=== PATIENT | female | born 1955 | race Caucasian/White ===

== ENCOUNTER 2016-12-15 03:41 | Emergency (ER) | payer OTHER ==
[2016-12-15 03:51] VITALS: BP 155/84; PULSE 73; TEMP 98.4; BMI 27.4
[2016-12-15 03:56] LABS: BASOPHIL 0.6 % (0-2.0); EOSINOPHIL 2.9 % (0-4.5); MCH 29.7 pg (25.7-33.7); MCHC 32.9 g/dl (32.0-36.0); MEAN CELL VOLUME 90.3 fl (80-96); NEUTROPHILS 46.4 % (42.8-82.8); PLATELET COUNT 263 K/MM3 (134-434); RDW 14.7 % (11.6-15.6); WHITE BLOOD COUNT 9.7 K/mm3 (4.0-10.0)
[2016-12-15 04:02] LABS: URINE APPEARANCE CLEAR; URINE BILIRUBIN NEGATIVE (NEGATIVE); URINE BLOOD NEGATIVE (NEGATIVE); URINE COLOR COLORLESS; URINE GLUCOSE (UA) NEGATIVE (NEGATIVE); URINE KETONE NEGATIVE (NEGATIVE); URINE LEUK ESTERASE NEGATIVE (NEGATIVE); URINE NITRITE NEGATIVE (NEGATIVE); URINE PROTEIN NEGATIVE (NEGATIVE); URINE UROBILINOGEN NEGATIVE E.U./dl (0.2-1.0)
[2016-12-15] MEDS ORDERED: PANTOPRAZOLE SODIUM 40 MG in SODIUM CHLORIDE 100 ML IVPB ONE (04:06)
--- NOTE | 2016-12-15 04:06 | PDOC ---
History of Present Illness - General History Source: Patient Exam Limitations: No Limitations - History of Present Illness Initial Comments: 12/15/16 04:09 The patient is a 61 year old female with significant past medical history of hypertension who presents to the ED for epigastric discomfort prior to arrival. Patient reports she was in her usual state of health and ate prior to going to bed last night when she woke up with epigastric discomfort. She describes the pain as a burning sensation that is nonradiating with associated nausea, but no vomiting or diarrhea. States her symptoms are progressively getting better. The patient denies fever, chills, cough, SOB, chest pain, and palpitations. Allergies: NKDA Social History: No alcohol, tobacco, or drug use reported. Past Surgical History: None reported PCP: None reported <Laura Moser - Last Filed: 12/15/16 04:10> - General History Source: Patient <Kvng Croft - Last Filed: 12/15/16 04:57> - General Chief Complaint: Pain Stated Complaint: ABDOMINAL PAIN Time Seen by Provider: 12/15/16 04:06 Past History <Laura Moser - Last Filed: 12/15/16 04:10> - Past Medical History HTN: Yes Hypercholesterolemia: Yes - Immunization History Immunization Up to Date: Yes - Psycho/Social/Smoking Cessation Hx Anxiety: No Suicidal Ideation: No Smoking Status: No Smoking History: Never smoked Have you smoked in the past 12 months: No Number of Cigarettes Smoked Daily: 0 Hx Alcohol Use: No Drug/Substance Use Hx: No <Kvng Croft - Last Filed: 12/15/16 04:57> - Past Medical History Allergies/Adverse Reactions: Allergies Allergy/AdvReac Type Severity Reaction Status Date / Time No Known Allergies Allergy Verified 12/15/16 03:48 Home Medications: Ambulatory Orders Aspirin [ASA -] 81 mg PO DAILY #0 tab.chew 02/26/13 Amlodipine Besylate [Norvasc -] 5 mg PO DAILY 12/15/16 Atorvastatin Ca [Lipitor] 40 mg PO HS 12/15/16 Levothyroxine [Synthroid -] 50 mcg PO DAILY 12/15/16 Pantoprazole Sodium [Protonix] 40 mg PO DAILY #30 tablet. 12/15/16 Review of Systems - Review of Systems Able to Perform ROS?: Yes Comments:: 12/15/16 04:09 CONSTITUTIONAL: Absent: fever, no chills, no fatigue EYES: Absent: visual changes ENT: Absent: ear pain, no sore throat CARDIOVASCULAR: Absent: chest pain, no palpitations RESPIRATORY: Absent: cough, no SOB GI: +epigastric discomfort, nausea Absent: no vomiting, no constipation, no diarrhea GENITOURINARY: Absent: dysuria, no frequency, no hematuria MUSCULOSKELETAL: Absent: back pain, no arthralgia, no myalgia SKIN: Absent: rash NEURO: Absent: headache <Laura Moser - Last Filed: 12/15/16 04:10> *Physical Exam - Vital Signs Last Vital Signs Temp Pulse Resp BP Pulse Ox 98.4 F 73 20 155/84 99 12/15/16 03:49 12/15/16 03:49 12/15/16 03:49 12/15/16 03:49 12/15/16 03:49 - Physical Exam Comments: 12/15/16 04:10 GENERAL: Well-appearing, well-nourished. No apparent distress. HEENT: Normocephalic, atraumatic. PERRL, EOM intact. CARDIOVASCULAR: Normal S1, S2. Regular rate and rhythm. PULMONARY: Clear to auscultation bilaterally. ABDOMEN: Soft, non-distended, non-tender. EXTREMITIES: Normal ROM in all four extremities. No gross deformities. SKIN: Warm, dry. No rash NEUROLOGICAL: No focal neurological deficits. <Laura Moser - Last Filed: 12/15/16 04:10> - Vital Signs Last Vital Signs Temp Pulse Resp BP Pulse Ox 98.4 F 73 20 155/84 99 12/15/16 03:49 12/15/16 03:49 12/15/16 03:49 12/15/16 03:49 12/15/16 03:49 <Kvng Croft - Last Filed: 12/15/16 04:57> Heart Score/ECG Review - ECG Impressions Comment:: 12/15/16 04:10 NSR with sinus arrhythmia @63bpm Nonspecific T wave abnormality Abnormal ECG <Laura Moser - Last Filed: 12/15/16 04:10> ED Treatment Course - LABORATORY CBC & Chemistry Diagram: 12/15/16 03:45 12/15/16 03:45 - ADDITIONAL ORDERS Additional order review: Laboratory Results 12/15/16 03:51 Urine Color Colorless Urine Appearance Clear Urine pH 7.0 Urine Protein Negative Urine Glucose (UA) Negative Urine Ketones Negative Urine Blood Negative Urine Nitrite Negative Urine Bilirubin Negative Urine Urobilinogen Negative Ur Leukocyte Esterase Negative 12/15/16 03:45 RBC 4.08 MCV 90.3 MCHC 32.9 RDW 14.7 MPV 8.0 Neutrophils % 46.4 Lymphocytes % 42.0 H Monocytes % 8.1 Eosinophils % 2.9 Basophils % 0.6 <Laura Moser - Last Filed: 12/15/16 04:10> - LABORATORY CBC & Chemistry Diagram: 12/15/16 03:45 12/15/16 03:45 - ADDITIONAL ORDERS Additional order review: Laboratory Results 12/15/16 03:51 Urine Color Colorless Urine Appearance Clear Urine pH 7.0 Urine Protein Negative Urine Glucose (UA) Negative Urine Ketones Negative Urine Blood Negative Urine Nitrite Negative Urine Bilirubin Negative Urine Urobilinogen Negative Ur Leukocyte Esterase Negative 12/15/16 03:45 RBC 4.08 MCV 90.3 MCHC 32.9 RDW 14.7 MPV 8.0 Neutrophils % 46.4 Lymphocytes % 42.0 H Monocytes % 8.1 Eosinophils % 2.9 Basophils % 0.6 <Kvng Croft - Last Filed: 12/15/16 04:57> Medical Decision Making - Medical Decision Making 12/15/16 04:56 Dr. Croft: The scribe's documentation has been prepared under my direction and personally reviewed by me in its entirery. I confirm that the note above accurately reflects all work, treatment, procedures, and medical decision making performed by me. <Kvng Croft - Last Filed: 12/15/16 04:57> *DC/Admit/Observation/Transfer - Attestations Scribe Attestion: 12/15/16 04:10 Documentation prepared by Laura Moser, acting as medical front desk coordinator for Kvng Croft MD/DO. <Laura Moser - Last Filed: 12/15/16 04:10> - Discharge Dispostion Admit: No <Kvng Croft - Last Filed: 12/15/16 04:57> Diagnosis at time of Disposition: Abdominal pain Qualifiers: Abdominal location: epigastric Qualified Code(s): R10.13 - Epigastric pain GERD (gastroesophageal reflux disease) Qualifiers: Esophagitis presence: esophagitis presence not specified Qualified Code(s): K21.9 - Gastro-esophageal reflux disease without esophagitis - Discharge Dispostion Disposition: HOME Condition at time of disposition: Stable - Referrals Referrals: Deja Chavez MD [Staff Physician] - - Patient Instructions Printed Discharge Instructions: DI for Abdominal Pain-Adult, GERD Diet, DI for Gastroesophageal Reflux Disease (GERD) Print Language: VINCENTIAN
[2016-12-15] MEDS ORDERED: PANTOPRAZOLE SODIUM 40 MG VIAL ONE (04:08)
[2016-12-15 04:19] LABS: ALBUMIN 3.6 g/dl (3.4-5.0); AMYLASE 62 U/L (25-115); ANION GAP 7 (8-16); BILIRUBIN,TOTAL 0.2 mg/dL (0.2-1.0); CALCIUM 8.8 mg/dL (8.5-10.1); CO2 28 mmol/L (21-32); COCKROFT - GAULT 114.2315; CREATININE 0.6 mg/dL (0.55-1.02); GLUCOSE,RANDOM 120 mg/dL (74-106); SGOT/AST 30 U/L (15-37); SGPT/ALT 50 U/L (12-78); TOT PROT 7.8 g/dl (6.4-8.2)
[2016-12-15 04:22] LABS: ALK PHOS 124 U/L (45-117); TROPONIN I < 0.02 ng/ml (0.00-0.05)
--- NOTE | 2016-12-15 13:07 | EKG ---
Test Reason : Blood Pressure : / mmHG Vent. Rate : 063 BPM Atrial Rate : 063 BPM P-R Int : 158 ms QRS Dur : 084 ms QT Int : 416 ms P-R-T Axes : 065 024 051 degrees QTc Int : 425 ms NORMAL SINUS RHYTHM WITH SINUS ARRHYTHMIA NONSPECIFIC T WAVE ABNORMALITY ABNORMAL ECG WHEN COMPARED WITH ECG OF 23-FEB-2013 09:55, NO SIGNIFICANT CHANGE WAS FOUND Confirmed by MEGGAN LONG MD ([id number]) on 12/15/2016 1:07:23 PM Referred By: Confirmed By:MEGGAN LONG MD
== END 2016-12-15 05:03 | disposition home or self-care (01) ==
LOC: JER 03:41
PROC: 3E033GC Introduction of Other Therapeutic Substance into Peripheral Vein, Percutaneous Approach (ICD-10-PCS; principal; 2016-12-15)
DX: K21.9 Gastro-esophageal reflux disease without esophagitis (principal); R10.13 Epigastric pain; I10 Essential (primary) hypertension
CPT/HCPCS: 36415; 80053; 81003; 82150; 82550; 82553; 83690; 84484; 85025; 93005; 93010; 99283-25

== ENCOUNTER 2017-03-01 17:03 | Emergency (ER) | payer OTHER ==
[2017-03-01 17:12] VITALS: BP 135/76; PULSE 67; TEMP 98.3; BMI 28.3
--- NOTE | 2017-03-01 17:57 | PDOC ---
History of Present Illness - General Chief Complaint: Laceration Stated Complaint: INJURY TO RIGHT FOOT Time Seen by Provider: 03/01/17 17:37 History Source: Patient Exam Limitations: No Limitations, Language Barrier - History of Present Illness Initial Comments: 03/01/17 17:52 daughter translating; CC mom dropped kitchen knife onto foot today Timing/Duration: reports: just prior to arrival Severity: Yes: mild Location: reports: extremities Past History - Past Medical History Allergies/Adverse Reactions: Allergies Allergy/AdvReac Type Severity Reaction Status Date / Time No Known Allergies Allergy Verified 03/01/17 17:09 Home Medications: Ambulatory Orders Aspirin [ASA -] 81 mg PO DAILY #0 tab.chew 02/26/13 Amlodipine Besylate [Norvasc -] 5 mg PO DAILY 12/15/16 Atorvastatin Ca [Lipitor] 40 mg PO HS 12/15/16 Levothyroxine [Synthroid -] 50 mcg PO DAILY 12/15/16 HTN: Yes Hypercholesterolemia: Yes - Immunization History Immunization Up to Date: Yes - Psycho/Social/Smoking Cessation Hx Anxiety: No Suicidal Ideation: No Smoking Status: No Smoking History: Never smoked Have you smoked in the past 12 months: No Number of Cigarettes Smoked Daily: 0 Information on smoking cessation initiated: No Hx Alcohol Use: No Drug/Substance Use Hx: No Substance Use Type: None Review of Systems - Review of Systems Constitutional: No: Chills, Fever, Loss of Appetite HEENTM: No: Symptoms Reported Respiratory: Yes: Symptoms reported Integumentary: Yes: Other (foot puncture;) *Physical Exam - Vital Signs Last Vital Signs Temp Pulse Resp BP Pulse Ox 98.3 F 67 18 135/76 100 03/01/17 17:10 03/01/17 17:10 03/01/17 17:10 03/01/17 17:10 03/01/17 17:10 - Physical Exam General Appearance: Yes: Appropriately Dressed. No: Apparent Distress HEENT: positive: TMs Normal, Pharynx Normal Respiratory/Chest: positive: Lungs Clear Integumentary: positive: Other (single .5cm laceartion/ puncture wound right foot dorsal surface; no deformity) ED Treatment Course - RADIOLOGY Radiology Studies Ordered: Category Date Time Status FOOT-RIGHT [RAD] Stat Radiology 03/01/17 17:41 Taken Medical Decision Making - Medical Decision Making uggest wound check in 2 days and abx x 5 days *DC/Admit/Observation/Transfer Diagnosis at time of Disposition: Stab wound of right foot Qualifiers: Encounter type: initial encounter Qualified Code(s): S91.311A - Laceration without foreign body, right foot, initial encounter - Discharge Dispostion Disposition: HOME Condition at time of disposition: Stable Admit: No - Patient Instructions Additional Instructions: wound check in ED in 2 days; clean with soap and water; elevate foot
== END 2017-03-01 18:05 | disposition home or self-care (01) ==
LOC: JERFT 17:03
DX: S91.311A Laceration without foreign body, right foot, initial encounter (principal); W20.8XXA Other cause of strike by thrown, projected or falling object, initial encounter; Y93.9 Activity, unspecified; Y92.9 Unspecified place or not applicable; I10 Essential (primary) hypertension; E78.00 Pure hypercholesterolemia, unspecified
CPT/HCPCS: 73630-TC-RT; 99281-25

== ENCOUNTER 2017-09-28 17:46 | Emergency (ER) | payer OTHER ==
[2017-09-28 17:58] VITALS: BP 134/71; PULSE 78; TEMP 98; BMI 25.8
--- NOTE | 2017-09-28 17:59 | PDOC ---
Rapid Medical Evaluation Chief Complaint: Pain Time Seen by Provider: 09/28/17 17:58 Medical Evaluation: Allergies Allergy/AdvReac Type Severity Reaction Status Date / Time No Known Allergies Allergy Verified 03/01/17 17:09 09/28/17 17:58 The patient presents with a chief complaint of: left side facial pain down to neck. I have performed a brief in-person evaluation of this patient; Pertinent physical exam findings: ambulatory, in no respiratory distress I have ordered the following: r/o shingles The patient will proceed to the ED for further evaluation.
--- NOTE | 2017-09-28 19:23 | PDOC ---
History of Present Illness - General Chief Complaint: Pain Stated Complaint: FACIAL PAIN Time Seen by Provider: 09/28/17 17:58 Past History - Past Medical History Allergies/Adverse Reactions: Allergies Allergy/AdvReac Type Severity Reaction Status Date / Time No Known Allergies Allergy Verified 03/01/17 17:09 Home Medications: Ambulatory Orders Aspirin [ASA -] 81 mg PO DAILY #0 tab.chew 02/26/13 Amlodipine Besylate [Norvasc -] 5 mg PO DAILY 12/15/16 Atorvastatin Ca [Lipitor] 40 mg PO HS 12/15/16 Levothyroxine [Synthroid -] 50 mcg PO DAILY 12/15/16 Amoxicillin/Potassium Clav [Augmentin 875-125 Tablet] 1 each PO BID #13 tablet 09/28/17 COPD: No HTN: Yes Hypercholesterolemia: Yes - Immunization History Immunization Up to Date: Yes - Suicide/Smoking/Psychosocial Hx Smoking Status: No Smoking History: Never smoked Have you smoked in the past 12 months: No Number of Cigarettes Smoked Daily: 0 Hx Alcohol Use: No Drug/Substance Use Hx: No Substance Use Type: None *Physical Exam - Vital Signs Last Vital Signs Temp Pulse Resp BP Pulse Ox 98.0 F 78 20 134/71 100 09/28/17 17:56 09/28/17 17:56 09/28/17 17:56 09/28/17 17:56 09/28/17 17:56 *DC/Admit/Observation/Transfer Diagnosis at time of Disposition: Sinusitis Qualifiers: Sinusitis location: maxillary Chronicity: acute Recurrence: non-recurrent Qualified Code(s): J01.00 - Acute maxillary sinusitis, unspecified - Discharge Dispostion Disposition: HOME Condition at time of disposition: Stable Admit: No - Referrals Referrals: William Mo [Primary Care Provider] - - Patient Instructions Printed Discharge Instructions: DI for Sinusitis Additional Instructions: You most likely has a sinus infection. Please take the Augmentin twice a day for the next week. You may take Motrin 800 mg every 8 hours as needed for pain. Warm steamy showers may help her pain. Please follow-up with her primary care doctor this week. Return to the emergency department if you have worsening pain, lightheadedness, weakness, fevers, or any changes in your symptoms. Es muy probable que tenga jerson infeccin sinusal. Por favor, tome el Augmentin dos veces al da luisa la prxima semana. Puede frankie Motrin 800 mg cada 8 horas, segn sea necesario para el dolor. Las duchas calientes y calientes pueden ayudarla a aliviar el dolor. Por favor murphy un seguimiento con escobar mdico de atencin primaria esta semana. Regrese al departamento de emergencias si tiene un empeoramiento del dolor, aturdimiento, debilidad, fiebre o cualquier cambio en lesvia sntomas. Print Language: IRISH - Post Discharge Activity Forms/Work/School Notes: Back to Work
[2017-09-28] MEDS ORDERED: IBUPROFEN 400 MG TABLET (FP) PO ONE ×2 (19:25→19:28)
[2017-09-28] MEDS ORDERED: AMOX TR/POT CLAV 875MG/125MG TABLETS (FP) PO ONE (19:25)
[2017-09-28] MEDS ORDERED: AMOX TR/POT CLAV 875MG/125MG TABLETS (FP) ONE (19:28)
== END 2017-09-28 19:31 | disposition home or self-care (01) ==
LOC: JERFT 17:46
DX: J01.00 Acute maxillary sinusitis, unspecified (principal); I10 Essential (primary) hypertension; E78.00 Pure hypercholesterolemia, unspecified
CPT/HCPCS: 99281-25

== ENCOUNTER 2019-09-28 11:41 | Observation (INO) | payer OTHER ==
[2019-09-28] MEDS ORDERED: ASPIRIN 81 MG CHEWABLE TABLETS PO ONE (12:29)
--- NOTE | 2019-09-28 12:44 | PDOC ---
Attending Attestation - Resident Resident Name: SaleemMarcos - ED Attending Attestation I have performed the following: I have examined & evaluated the patient, The case was reviewed & discussed with the resident, I agree w/resident's findings & plan, Exceptions are as noted - HPI HPI: 09/28/19 13:09 64yo female with hx of htn with cp this am when she woke up. Midsternal cp that radiates to her L shoulder. Pt denies assoc sob, no pleuritic component, denies nausea, vomiting. Pt denies f/c. No cough. No abd pain. No LE swelling. - Physicial Exam PE: 09/28/19 13:10 Gen: aaox3, nad heart: +s1s2 burton lungs: cta b/l, anterior chest wall ttp abd: soft, nt/nd +bs ext: no c/c/e - Medical Decision Making 09/28/19 13:10 a/p: 64yo female with anterior chest wall pain/midsternal pain that radiates to the L shoulder -pt with bradycardia today- on metroprolol -midsternal cp, will send labs, trop, ekg, cxr, asa -will place on surveillance monitor -will monitor and reassess -will discuss with physician -no gerd symptoms 09/28/19 13:47 trop neg cxr clear 09/28/19 13:47 labs reviewed and stable 09/28/19 15:09 resident discussed the case with [facility] for tele obs Heart Score/ECG Review - ECG Intrepretation Comment:: 09/28/19 13:22 sinus burton at 48, nl axis, nl interval, no acute st/t wave findings
--- NOTE | 2019-09-28 12:44 | PDOC ---
History of Present Illness - General Chief Complaint: Chest Pain Stated Complaint: PAIN Time Seen by Provider: 09/28/19 12:13 History Source: Patient Exam Limitations: No Limitations - History of Present Illness Initial Comments: 09/28/19 12:37 64 yo female pmh of HTN, HLD and hypothyroidism present t ot ED for 6 hours of non exertional CP. Pt states after waking up at 6 30 am she noted chest pressure worse when she lays flat, substernal and radiates to her bilateral shoulders, constant. Pt denies associated N/V or diaphoresis, Pain is not worse on exertion and is relieved with sitting upright. Pain is reproducible on palpation. Denies F/C, cough, headaches, body aches, SOB, abdominal pain, changes in bowel or bladder habits, calf tenderness, recent travel or sick contacts. Non smoker Past History - Past Medical History Allergies/Adverse Reactions: Allergies Allergy/AdvReac Type Severity Reaction Status Date / Time No Known Allergies Allergy Verified 09/28/19 11:43 Home Medications: Ambulatory Orders Aspirin [ASA -] 81 mg PO DAILY #0 tab.chew 02/26/13 Amlodipine Besylate [Norvasc -] 5 mg PO DAILY 12/15/16 Atorvastatin Ca [Lipitor] 40 mg PO HS 12/15/16 Levothyroxine [Synthroid -] 50 mcg PO DAILY 12/15/16 Amoxicillin/Potassium Clav [Augmentin 875-125 Tablet] 1 each PO BID #13 tablet 09/28/17 COPD: No HTN: Yes Hypercholesterolemia: Yes - Immunization History Immunization Up to Date: Yes - Psycho Social/Smoking Cessation Hx Smoking Status: No Smoking History: Never smoked Have you smoked in the past 12 months: No Number of Cigarettes Smoked Daily: 0 Hx Alcohol Use: No Drug/Substance Use Hx: No Substance Use Type: None Review of Systems - Review of Systems Constitutional: Yes: See HPI HEENTM: Yes: See HPI Respiratory: Yes: See HPI Cardiac (ROS): Yes: See HPI ABD/GI: Yes: See HPI : Yes: See HPI Musculoskeletal: Yes: See HPI Integumentary: Yes: See HPI Neurological: Yes: See HPI *Physical Exam - Vital Signs Last Vital Signs Temp Pulse Resp BP Pulse Ox 98.0 F 48 L 18 178/61 H 99 09/28/19 11:43 09/28/19 11:43 09/28/19 11:43 09/28/19 11:43 09/28/19 11:43 - Physical Exam General Appearance: Yes: Nourished, Appropriately Dressed. No: Apparent Distress HEENT: positive: EOMI, Normal ENT Inspection Neck: positive: Supple. negative: Carotid bruit Respiratory/Chest: positive: Lungs Clear, Normal Breath Sounds. negative: Respiratory Distress, Accessory Muscle Use, Rapid RR, Crackles, Rales, Rhonchi, Stridor, Wheezing Cardiovascular: positive: Regular Rhythm, Regular Rate, S1, S2. negative: Edema, JVD, Murmur Vascular Pulses: Dorsalis-Pedis (R): 4+, Doralis-Pedis (L): 4+ Gastrointestinal/Abdominal: positive: Flat, Soft. negative: Pulsatile Mass, Protuberent, Distended, Guarding, Rebound, Tenderness Musculoskeletal: negative: CVA Tenderness Extremity: positive: Normal Capillary Refill, Normal Inspection, Normal Range of Motion Integumentary: positive: Normal Color, Dry, Warm Neurologic: positive: Fully Oriented, Alert, Normal Mood/Affect, Normal Response ED Treatment Course - LABORATORY CBC & Chemistry Diagram: 09/28/19 12:15 09/28/19 12:15 - RADIOLOGY Radiology Studies Ordered: Category Date Time Status CHEST PA & LAT [RAD] Stat Radiology 09/28/19 12:23 Ordered Medical Decision Making - Medical Decision Making 09/28/19 15:21 64 yo female pmh of HTN, HLD and hypothyroidism present t [facility] ED for 6 hours of non exertional CP. Pt states after waking up at 6 30 am she noted chest pressure worse when she lays flat, substernal and radiates to her bilateral shoulders, constant. Pt denies associated N/V or diaphoresis, Pain is not worse on exertion and is relieved with sitting upright. Pain is reproducible on palpation. Denies F/C, cough, headaches, body aches, SOB, abdominal pain, changes in bowel or bladder habits, calf tenderness, recent travel or sick contacts. Non smoker Vitals show low HR 48, EKG sinus burton with normal intervals. Pt on Metoprolol BP elevated on arrival, BP trending down CXR no acute pathology Labs WNL including trops Due to persistent bradycardia and acute, persistent CP described as pressure, pt will be admitted to R/O ACS pre attending discussed case with admitting team, pt accepted for admission Discharge - Discharge Information Problems reviewed: Yes Clinical Impression/Diagnosis: ACS (acute coronary syndrome) Condition: Stable - Admission Yes - Follow up/Referral - Patient Discharge Instructions - Post Discharge Activity
[2019-09-28 12:52] LABS: BASO % 1.4 % (0-2.0); EOS % 3.9 % (0-4.5); HEMATOCRIT 37.2 % (32.4-45.2); HEMOGLOBIN 12.5 GM/dL (10.7-15.3); LYMPH % 46.6 % (8-40); MCH 31.2 pg (25.7-33.7); MCHC 33.5 g/dl (32.0-36.0); MEAN PLT VOLUME 8.7 fl (7.5-11.1); MONO % 8.8 % (3.8-10.2); NEUT % 39.3 % (42.8-82.8); PLATELET COUNT 276 K/MM3 (134-434); RDW 14.8 % (11.6-15.6); WHITE BLOOD COUNT 9.5 K/mm3 (4.0-10.0)
[2019-09-28 13:08] LABS: INR 0.97 (0.83-1.09); PROTHROMBIN TIME (PATIENT) 11.5 SEC (9.7-13.0)
[2019-09-28 13:11] LABS: ACTIVATED PTT 28.3 SECONDS (25.2-36.5)
[2019-09-28 13:24] LABS: N-TERMINAL BNP 52.8 pg/ml (5-125)
[2019-09-28 13:31] LABS: ALBUMIN 3.5 g/dl (3.4-5.0); ALK PHOS 110 U/L (45-117); ANION GAP 5 MMOL/L (8-16); BILIRUBIN,TOTAL 0.4 mg/dL (0.2-1); BLOOD UREA NITROGEN 15.3 mg/dL (7-18); CALCIUM 8.7 mg/dL (8.5-10.1); CHLORIDE 106 mmol/L (98-107); CO2 28 mmol/L (21-32); CREATININE 0.7 mg/dL (0.55-1.3); GLUCOSE,RANDOM 98 mg/dL (74-106); MAGNESIUM 2.4 mg/dL (1.8-2.4); POTASSIUM 4.3 mmol/L (3.5-5.1); SGOT/AST 28 U/L (15-37); SGPT/ALT 39 U/L (13-61); SODIUM 139 mmol/L (136-145); TOT PROT 7.4 g/dl (6.4-8.2)
--- NOTE | 2019-09-28 16:05 | HP ---
CHIEF COMPLAINT: chest pain PCP: Dr. Preston HISTORY OF PRESENT ILLNESS: Pt. is a 64 y.o. Bangladeshi-speaking F w/ PMHx. of HTN, HLD, Hypothyroidism and Pre-DM, presenting to the ED with chest pain. Pt. states that the pain started ~6AM this morning and lasted for 6 hours. Pt. states that the pain radiated to both shoulders, was worse when lying flat and was reproducible on palpation. Pt. states this has never happened before. Pt. states that she saw Dr. Urban ~ 6 months ago and had an unremarkable echo done. Pt. endorses having a herpes zoster flare on her right upper abdomen 1 month ago and was given some medication that she cannot recall for 7 days. Pt. currently denies any chest pain, shortness of breath, fever or chills. Pt. denies any changes in her urinary or bowel habits. Pt. states she is uptodate with her Pap Smears, Mammograns and Colonoscopies (has had 2 that are benign). Pt. denies any sick contacts. [employer] #[id number]. Pt. reports to Dr. Fortune that Pt. has had dyspnea on exertion and chest pressure that radiates to the L. shoulder and neck. ER course was notable for: (1) ASA, EKG, CBC, CMP, CXR (2) (3) Recent Travel: No PAST MEDICAL HISTORY: As above. PAST SURGICAL HISTORY: Social History: Smoking: Denies Alcohol: Denies currently, socially when younger Drugs: Denies Allergies No Known Allergies Allergy (Verified 09/28/19 11:43) HOME MEDICATIONS: Home Medications Medication Instructions Recorded Aspirin [ASA -] 81 mg PO DAILY #0 tab.chew 02/26/13 Amlodipine Besylate [Norvasc -] 5 mg PO DAILY 12/15/16 Atorvastatin Ca [Lipitor] 40 mg PO HS 12/15/16 Levothyroxine [Synthroid -] 50 mcg PO DAILY 12/15/16 Amoxicillin/Potassium Clav 1 each PO BID #13 tablet 09/28/17 [Augmentin 875-125 Tablet] REVIEW OF SYSTEMS As above PHYSICAL EXAMINATION Vital Signs - 24 hr 09/28/19 09/28/19 09/28/19 11:43 13:00 14:53 Temperature 98.0 F 97.7 F Pulse Rate 48 L Pulse Rate [ 45 L Left] Respiratory 18 18 Rate Blood Pressure 178/61 H Blood Pressure 151/66 [Left] O2 Sat by Pulse 99 98 98 Oximetry (%) GENERAL: Awake, alert, and fully oriented, in no acute distress. HEAD: Normal with no signs of trauma. EYES: Sclera anicteric, conjunctiva clear. No lid lag. EARS, NOSE, THROAT: Ears normal, nares patent, oropharynx clear without exudates. Moist mucous membranes. NECK: Normal range of motion LUNGS: Faint bibasilar crackles. No accessory muscle use. HEART: bradycardic regular rate and rhythm, normal S1 and S2 without murmur ABDOMEN: Soft, nontender, not distended, normoactive bowel sounds, no guarding, no rebound, no masses. MUSCULOSKELETAL: Normal range of motion at all joints. No CVA tenderness. Non- tender to palpation on chest on my examination, Reported tender on previous and subsequent examinations. UPPER EXTREMITIES: 2+ radial pulses, warm, well-perfused. No cyanosis. No clubbing. No peripheral edema. LOWER EXTREMITIES: 2+ dorsal pedal pulses, warm, well-perfused. No calf tenderness. No peripheral edema. NEUROLOGICAL: Normal speech. Normal gait. PSYCHIATRIC: Cooperative. Good eye contact. Appropriate mood and affect. SKIN: Warm, dry, normal turgor, no rashes or lesions noted Laboratory Results - last 24 hr 09/28/19 09/28/19 09/28/19 12:15 12:15 12:15 WBC 9.5 RBC 4.00 Hgb 12.5 Hct 37.2 MCV 93.0 MCH 31.2 MCHC 33.5 RDW 14.8 Plt Count 276 MPV 8.7 Absolute Neuts (auto) 3.7 Neutrophils % 39.3 L Lymphocytes % 46.6 H Monocytes % 8.8 Eosinophils % 3.9 Basophils % 1.4 Nucleated RBC % 0 PT with INR 11.50 INR 0.97 PTT (Actin FS) 28.3 Sodium 139 Potassium 4.3 Chloride 106 Carbon Dioxide 28 Anion Gap 5 L BUN 15.3 Creatinine 0.7 Est GFR (CKD-EPI)AfAm 106.87 Est GFR (CKD-EPI)NonAf 92.21 Random Glucose 98 Calcium 8.7 Magnesium 2.4 Total Bilirubin 0.4 AST 28 ALT 39 Alkaline Phosphatase 110 Creatine Kinase 495 H Creatine Kinase Index 1.6 CK-MB (CK-2) 8.0 H Troponin I < 0.02 B-Natriuretic Peptide Total Protein 7.4 Albumin 3.5 09/28/19 12:15 WBC RBC Hgb Hct MCV MCH MCHC RDW Plt Count MPV Absolute Neuts (auto) Neutrophils % Lymphocytes % Monocytes % Eosinophils % Basophils % Nucleated RBC % PT with INR INR PTT (Actin FS) Sodium Potassium Chloride Carbon Dioxide Anion Gap BUN Creatinine Est GFR (CKD-EPI)AfAm Est GFR (CKD-EPI)NonAf Random Glucose Calcium Magnesium Total Bilirubin AST ALT Alkaline Phosphatase Creatine Kinase Creatine Kinase Index CK-MB (CK-2) Troponin I B-Natriuretic Peptide 52.8 Total Protein Albumin ASSESSMENT/PLAN: Pt. is a 64 y.o. Bangladeshi-speaking F w/ PMHx. of HTN, HLD, Hypothyroidism and Pre-DM, presenting to the ED with chest pain. Pt. states that the pain started ~6AM this morning and lasted for 6 hours. #Chest Pain r/o ACS Trop Neg. x 1 EKG: shows very slight ST segment elevation in septal leads but less than 1mm. TWI in V1. EKG unchanged from prior admission in 2017 except aVF is more biphasic currently. Given ASA in ED R/o acute pericarditis 2/2 recent viral infection vs. Unstable angina Pt. was asymptomatic on my evaluation likely because she had already received Aspirin. f/u CRP At this time we will hold ASA (given for primary prevention), and observe if Pt. begins to have chest pain Cannot rule out acid reflux as another etiology of Pt.'s pain CK-MB: 8.0 CPK: [address] Urban appreciated for complete records and for evaluation if Pt. would benefit from Stress test. Pt. reportedly had last Stress test in 2017 with "mild tissue attenuation" and 3 day Holter monitoring which was negative. #Bradycardia c/w cardiac monitoring May be due to Toprol, Pt. denies any symptoms at this time Hold Toprol 50mg f/u TSH #HTN #HLD #Hypothyroidism #Pre-DM Pt. states her A1c was 6.2 about 6 months ago. She was started on Metformin 500 but then her physician took her off the medication and told her to try diet and exercise. c/w Synthroid and Lipitor Start Norvasc 5mg for BP control #FEN no IVF, encourage PO intake monitor electrolytes and replete as needed Diabetic /Sodium controlled Diet #DVT Ppx. Hep Sq Visit type - Emergency Visit Emergency Visit: Yes ED Registration Date: 09/28/19 Care time: The patient presented to the Emergency Department on the above date and was hospitalized for further evaluation of their emergent condition. - New Patient This patient is new to me today: Yes Date on this admission: 09/28/19 - Critical Care Critical Care patient: No ATTENDING PHYSICIAN STATEMENT I saw and evaluated the patient. I reviewed the resident's note and discussed the case with the resident. I agree with the resident's findings and plan as documented. SUBJECTIVE: OBJECTIVE: ASSESSMENT AND PLAN:
[2019-09-28 16:55] VITALS: BMI 27.8
[2019-09-28] MEDS ORDERED: HEPARIN NA (PORCINE) 5,000 UNITS/ML 1ML VIAL SQ SCH (18:00)
--- NOTE | 2019-09-28 18:54 | PN ---
Teaching Attending Note Name of Resident: Rambo Espino ATTENDING PHYSICIAN STATEMENT I saw and evaluated the patient. I reviewed the resident's note and discussed the case with the resident. I agree with the resident's findings and plan as documented. SUBJECTIVE: [employer] administrative resources associate Norah [id number] was used. CC: CP. HPI: 63 y/o lady with h/o HTN, HLP, hypothyroidism, pre-diabetes, recent herpes zoster, and other medical problems who presented with CP. after she wok up this am to urinate, she had an episode of chest pressure in retrosternal area that shortly radiated to her L shoulder and posterior neck. She felt SOB with that. At 10 am she took one asa, then came to the ER for persistent pain. in ER she received ASA and pain resolved. total duration of pain was about 3.5-4 hrs. Pain is not related to body positions, but it was worse when she pushed on her chest. she reports DELACRUZ but no CP with exertion . she reprots a previous episode of CP at rest before. she had stress test in 2012 ( NL ) , and 2016 ( soft tissue attentuation ) . she last saw Dr. Urban 6 months ago and has an appointment with him in October. She had a holter monitor recently x 3 days which was reportedly nl. OBJECTIVE: NAD, awake , alert , cooperative . MMM, No facial droop. EOMI, round reactive pupils. cataract b/l. CV: RRR, NO MRG Lungs: CTAB Ext : No edema or erythema , no fungal infection in feet Abd: soft, NT, ND, NL BS MS: No TTP over chest wall ASSESSMENT AND PLAN: 63 y/o lady with h/o HTN, HLP, hypothyroidism, pre-diabetes, recent herpes zoster, and other medical problems who presented with CP. 1- CP: happened at rest, pressure like, radiated to neck and L shoulder, associated with SOB. this is concerning for Unstable angina. but the fact that it was reproducible argues against ACS. other concerning hx is DELACRUZ, and previous episode of CP at rest. last stress in 2017 as above In DDx is also GERD and MS - EKG with sinus rhythm, caba, [address] changes. TWI Barbie septal leads but it was present on EKG from 2017. first trop neg - repeat trop - Tele monitoring - consult card. ? need fro repeat stress as Inpt vs Out pt - cont Asa 2- Sinus bradycardia: likely due to atenolol. has been on it for years. No sx now but occasionally gets light headed - hold atenolol -monitor on tele - check TSH 3- H/o HTN : give norvasc instead of atenolol 4- Hypothyroidism : cont synthroid 5- DVT Px: SQ heparin
[2019-09-28] MEDS: amLODIPine BESYLATE 5 MG TABLET (FP) PO SCH (21:59)
[2019-09-28] MEDS: HEPARIN NA (PORCINE) 5,000 UNITS/ML 1ML VIAL SQ SCH (21:59)
[2019-09-28] MEDS: ATORVASTATIN CA 20 MG TABLET (FP) PO SCH (22:06)
[2019-09-29] MEDS: HEPARIN NA (PORCINE) 5,000 UNITS/ML 1ML VIAL SQ SCH ×2 (06:19→22:03)
[2019-09-29] MEDS: LEVOTHYROXINE NA 50 MCG TABLET (FP) PO SCH (06:19)
[2019-09-29 07:58] LABS: HEMATOCRIT 36.6 % (32.4-45.2); HEMOGLOBIN 12.4 GM/dL (10.7-15.3); MCH 31.3 pg (25.7-33.7); MEAN CELL VOLUME 92.1 fl (80-96); MEAN PLT VOLUME 9.2 fl (7.5-11.1); PLATELET COUNT 268 K/MM3 (134-434); RBC 3.97 M/mm3 (3.60-5.2); RDW 14.9 % (11.6-15.6); WHITE BLOOD COUNT 7.8 K/mm3 (4.0-10.0)
[2019-09-29 08:21] LABS: BLOOD UREA NITROGEN 16.1 mg/dL (7-18); CALCIUM 8.8 mg/dL (8.5-10.1); CREATININE 0.8 mg/dL (0.55-1.3); MAGNESIUM 2.4 mg/dL (1.8-2.4); PHOSPHOROUS 4.1 mg/dL (2.5-4.9); POTASSIUM 4.4 mmol/L (3.5-5.1)
[2019-09-29] MEDS: amLODIPine BESYLATE 5 MG TABLET (FP) PO SCH (09:08)
--- NOTE | 2019-09-29 09:52 | EKG ---
Test Reason : Blood Pressure : / mmHG Vent. Rate : 048 BPM Atrial Rate : 048 BPM P-R Int : 170 ms QRS Dur : 086 ms QT Int : 458 ms P-R-T Axes : 061 013 071 degrees QTc Int : 409 ms SINUS BRADYCARDIA WITH SINUS ARRHYTHMIA NONSPECIFIC T WAVE ABNORMALITY ABNORMAL ECG WHEN COMPARED WITH ECG OF 15-DEC-2016 04:04, NO SIGNIFICANT CHANGE WAS FOUND Confirmed by Javier Quiroz MD ([id number]) on 09/29/2019 9:52:11 AM Referred By: Confirmed By:Javier Quiroz MD
--- NOTE | 2019-09-29 11:47 | CON.CARD ---
Consult Consult Specialty:: Cardiology Referred by:: Medicine Reason for Consultation:: chest pain - History of Present Illness Chief Complaint: chest pain History of Present Illness: 64F h/o HTN, HLD, hypothyroidism, prediabetes p/w chest pain starting day of admission, lasted 6 hours, radiating to shoulders. Prior to this admission she had experienced dyspnea on exertion and chest tightness radiating to L shoulder and neck. Sees Dr. Urban for cardio, last was about 6 months ago and per pt echo unremarkable. - Alcohol/Substance Use Hx Alcohol Use: No - Smoking History Smoking history: Never smoked Have you smoked in the past 12 months: No Aproximately how many cigarettes per day: 0 Home Medications - Allergies Allergies/Adverse Reactions: Allergies Allergy/AdvReac Type Severity Reaction Status Date / Time No Known Allergies Allergy Verified 09/28/19 11:43 - Home Medications Home Medications: Ambulatory Orders Aspirin [ASA -] 81 mg PO DAILY #0 tab.chew 02/26/13 Levothyroxine [Synthroid -] 50 mcg PO DAILY 12/15/16 Atorvastatin Ca [Lipitor] 20 mg PO HS 09/28/19 Metoprolol Succinate [Toprol Xl -] 50 mg PO DAILY 09/28/19 Metoprolol Succinate [Toprol Xl] 50 mg PO DAILY 09/28/19 Family Medical History Family History: Unremarkable Review of Systems - Review of Systems Constitutional: reports: No Symptoms Eyes: reports: No Symptoms HENT: reports: No Symptoms Neck: reports: No Symptoms Cardiovascular: reports: No Symptoms Respiratory: reports: No Symptoms Gastrointestinal: reports: No Symptoms Genitourinary: reports: No Symptoms Musculoskeletal: reports: No Symptoms Integumentary: reports: No Symptoms Neurological: reports: No Symptoms Endocrine: reports: No Symptoms Hematology/Lymphatic: reports: No Symptoms Psychiatric: reports: No Symptoms Vital Signs: Vital Signs Temperature 98.2 F 09/29/19 07:51 Pulse Rate 52 L 09/29/19 07:51 Respiratory Rate 20 09/29/19 07:51 Blood Pressure 152/69 09/29/19 07:51 O2 Sat by Pulse Oximetry (%) 96 09/29/19 05:00 Constitutional: Yes: No Distress, Calm Eyes: Yes: Conjunctiva Clear, EOM Intact HENT: Yes: Atraumatic, Normocephalic Neck: Yes: Supple, Trachea Midline Respiratory: Yes: Regular, CTA Bilaterally Gastrointestinal: Yes: Normal Bowel Sounds, Soft Cardiovascular: Yes: Regular Rate and Rhythm Heart Sounds: Yes: S1, S2 Murmur: No: Systolic Murmur Extremities: No: Cold Edema: No Neurological: Yes: Alert, Oriented Psychiatric: No: Agitated - Other Data Labs, Other Data: CBC, BMP 09/29/19 06:15 09/29/19 06:15 INR, PTT INR 0.97 (0.83-1.09) 09/28/19 12:15 Troponin, BNP 09/28/19 09/28/19 09/28/19 12:15 12:15 19:30 Troponin I < 0.02 < 0.02 B-Natriuretic Peptide 52.8 Troponin, BNP 09/28/19 09/28/19 09/28/19 12:15 12:15 19:30 Troponin I < 0.02 < 0.02 B-Natriuretic Peptide 52.8 Assessment/Plan EKG: sinus burton, no ischemic changes CXR: no acute process mibi 2014 no ischemia tele: sinus burton chest pain - trop neg x 2, no ischemic changes on EKG - less likely ACS - monitoring on tele - will evaluate with mibi bradycardia - toprol held, monitoring on tele - sinus burton - TSH pending HTN - cont norvasc hypothyroidism - manage per primary
--- NOTE | 2019-09-29 15:13 | PN ---
Progress Note (short form) - Note Progress Note: Subjective: [employer] picker tender joe, [id number] was used No cp today . had a brief episode of chest pressure last night that resolved in seconds. no N/V . no SOB Objective: Vital Signs: Last Vital Signs Temp Pulse Resp BP Pulse Ox 98 F 54 L 20 134/68 96 09/29/19 14:20 09/29/19 14:20 09/29/19 14:20 09/29/19 14:20 09/29/19 13:00 Laboratory Results - last 24 hr 09/28/19 09/28/19 09/29/19 12:15 19:30 06:15 WBC 7.8 RBC 3.97 Hgb 12.4 Hct 36.6 MCV 92.1 MCH 31.3 MCHC 34.0 RDW 14.9 Plt Count 268 MPV 9.2 Sodium Potassium Chloride Carbon Dioxide Anion Gap BUN Creatinine Est GFR (CKD-EPI)AfAm Est GFR (CKD-EPI)NonAf Random Glucose Calcium Phosphorus Magnesium Creatine Kinase 373 H Creatine Kinase Index 1.6 CK-MB (CK-2) 6.3 H Troponin I < 0.02 C-Reactive Protein 0.5 H B-Natriuretic Peptide 52.8 09/29/19 06:15 WBC RBC Hgb Hct MCV MCH MCHC RDW Plt Count MPV Sodium 141 Potassium 4.4 Chloride 109 H Carbon Dioxide 26 Anion Gap 6 L BUN 16.1 Creatinine 0.8 Est GFR (CKD-EPI)AfAm 90.94 Est GFR (CKD-EPI)NonAf 78.46 Random Glucose 82 Calcium 8.8 Phosphorus 4.1 Magnesium 2.4 Creatine Kinase Creatine Kinase Index CK-MB (CK-2) Troponin I C-Reactive Protein B-Natriuretic Peptide Physical Exam: NAD, awake , alert , cooperative. CV: RRR, 2/6 SM at base Lungs: CTAB Ext: No edema or erythema MS: No TTP over chest wall ASSESSMENT AND PLAN: 63 y/o lady with h/o HTN, HLP, hypothyroidism, pre-diabetes, recent herpes zoster, and other medical problems who presented with CP. 1- CP: - d/w Dr. Chavez - stress test tomorrow. - cont ASA 2- Sinus bradycardia: likely due to atenolol. - cont to hold atenolol -monitor on tele - TSH pending 3- H/o HTN : give norvasc instead of atenolol 4- Hypothyroidism : cont synthroid 5- DVT Px: SQ heparin Visit type - Emergency Visit Emergency Visit: Yes ED Registration Date: 09/28/19 Care time: The patient presented to the Emergency Department on the above date and was hospitalized for further evaluation of their emergent condition. - New Patient This patient is new to me today: No - Critical Care Critical Care patient: No
[2019-09-29] MEDS: ATORVASTATIN CA 20 MG TABLET (FP) PO SCH (22:02)
[2019-09-30] MEDS: LEVOTHYROXINE NA 50 MCG TABLET (FP) PO SCH (06:14)
[2019-09-30] MEDS: HEPARIN NA (PORCINE) 5,000 UNITS/ML 1ML VIAL SQ SCH ×2 (06:16→13:54)
[2019-09-30] MEDS ORDERED: ASPIRIN COATED 81 MG TABLET.EC PO SCH (10:00)
[2019-09-30] MEDS: amLODIPine BESYLATE 5 MG TABLET (FP) PO SCH (10:53)
[2019-09-30] MEDS ORDERED: REGADENOSON 0.4 MG/5 ML PRE-FILLED SYRINGE IVPUSH ONE ×2 (11:00→11:54)
--- NOTE | 2019-09-30 13:27 | PN ---
Teaching Attending Note Name of Resident: Cherelle Farias ATTENDING PHYSICIAN STATEMENT I saw and evaluated the patient. I reviewed the resident's note and discussed the case with the resident. I agree with the resident's findings and plan as documented. SUBJECTIVE: Medical student Reynold, helped with translation No fever or chills. no CP , she feels better. No events over night . OBJECTIVE: NAD, awake , alert , cooperative. CV: RRR, 2/6 SM at base. Lungs: CTAB Ext: No edema or erythema. MS: No TTP over chest wall. Thyroid with palpable isthmus but no enlargement in lobes and no nodules ASSESSMENT AND PLAN: 63 y/o lady with h/o HTN, HLP, hypothyroidism, pre-diabetes, recent herpes zoster, and other medical problems who presented with CP. 1- CP: - stress test is pending - cont ASA 2- Sinus bradycardia: likely due to atenolol. - cont to hold atenolol. - TSH NL. 3- H/o HTN: at dc can send on lisinopril since she is prediabetic 4- Hypothyroidism: cont synthroid 5- DVT Px: SQ heparin dispo : dependign on stress test results. if stress test is neg, can dc home.
--- NOTE | 2019-09-30 15:01 | PN ---
Progress Note (short form) - Note Progress Note: s: no chest pain, palps, dizziness, dyspnea Current Medications Amlodipine Besylate (Norvasc -) 5 mg PO DAILY [facility] Last Admin: 09/30/19 10:53 Dose: 5 mg Documented by: Aspirin (Ecotrin -) 81 mg PO DAILY [facility] Last Admin: 09/30/19 13:54 Dose: 81 mg Documented by: Atorvastatin Calcium (Lipitor -) 20 mg PO HS [facility] Last Admin: 09/29/19 22:02 Dose: 20 mg Documented by: Heparin Sodium (Porcine) (Heparin -) 5,000 unit SQ TID [facility] Last Admin: 09/30/19 13:54 Dose: 5,000 unit Documented by: Levothyroxine Sodium (Synthroid -) 50 mcg PO ACBK [facility] Last Admin: 09/30/19 06:14 Dose: 50 mcg Documented by: Vital Signs Period Temp Pulse Resp BP Sys/Wen Pulse Ox Last 24 Hr 97.3 F-98.3 F 48-61 18-20 135-145/71-85 95-95 Constitutional: Yes: No Distress, Calm Eyes: Yes: Conjunctiva Clear, EOM Intact HENT: Yes: Atraumatic, Normocephalic Neck: Yes: Supple, Trachea Midline Respiratory: Yes: Regular, CTA Bilaterally Gastrointestinal: Yes: Normal Bowel Sounds, Soft Cardiovascular: Yes: Regular Rate and Rhythm Heart Sounds: Yes: S1, S2 Murmur: No: Systolic Murmur Extremities: No: Cold Edema: No Neurological: Yes: Alert, Oriented Psychiatric: No: Agitated Assessment/Plan EKG: sinus burton, no ischemic changes CXR: no acute process mibi 2014 no ischemia tele: sinus burton chest pain - trop neg x 2, no ischemic changes on EKG - less likely ACS - monitoring on tele - mibi pending - if benign findings, no further inpatient cardiac testing bradycardia - bb held, monitoring on tele - sinus burton HTN - cont norvasc hypothyroidism - manage per primary
--- NOTE | 2019-09-30 17:35 | DS ---
Physical Exam: SUBJECTIVE: Patient seen and examined at bedside. adjunct trainer [employer] food service driver [id number] used. pt has no acute complaints. no acute episodes of chest discomfort or shortness of breath OBJECTIVE: Vital Signs Period Temp Pulse Resp BP Sys/Wen Pulse Ox Last 24 Hr 97.3 F-98.7 F 48-58 18-20 135-145/65-85 95-95 PHYSICAL EXAM GENERAL: The patient is awake, alert, and fully oriented, in no acute distress. HEAD: Normal with no signs of trauma. NECK: Trachea midline, full range of motion, supple. LUNGS: Breath sounds equal, clear to auscultation bilaterally, no accessory muscle use. HEART: Regular rate and rhythm, S1, S2 ABDOMEN: Soft, nontender, nondistended, normoactive bowel sounds, no guarding, no rebound EXTREMITIES: 2+ pulses, warm, well-perfused, no edema. SKIN: Warm, dry, normal turgor, no rashes or lesions noted. LABS Laboratory Results - last 24 hr 09/30/19 06:05 TSH 2.35 HOSPITAL COURSE: Date of Admission:09/28/19 64 yo F PMH of HTN, HLD, hypothyroidism, pre-DM, hx of herpes zoster who presented to the hospital for chest pain and was admitted to r/o ACS. pt had trops negative x 2. pt had a stress test which was negative. Pt should continue asa. pt was continued on tele and noted to have bradycardia. the pt's metoprolol was held and pt was started on norvasc 5. pt was evaluated by cardiology. TSH was monitored and WNL. pt was maintained on synthroid. pt was on heparin for DVT ppx. Pt should f/u outpt w cardio and pmd in 1 week and have discussion about switching to REBECCA-I. pt is discharged home Date of Discharge: 09/30/19 Minutes to complete discharge: 36 Discharge Summary Problems reviewed: Yes Reason For Visit: CRADYCARDIA, CHEST PAIN Condition: Improved - Instructions Diet, Activity, Other Instructions: You came into the hospital for chest pain. Your heart was monitored for arrhythmias, which was negative. You had a stress test for your heart which was negative.You were evaluated by a property preservation specialist and are stable for discharge. Please do not continue to take toprol XL. You are started on a new medication called norvasc 5 mg daily. Please continue your additional home medications as prescribed Please follow up with your primary care provider in 1 week to follow up with your chronic medical conditions. Please discuss additional blood pressure management options, including REBECCA-Inhibitors Please follow up with your property preservation specialist, Dr. Urban, in 1 week to review your improvement. If you have any new, worsening, or concerning symptoms please call 911 or return to the ED. Referrals: Dk Urban MD [Staff Physician] - Lizandro Preston MD [Primary Care Provider] - Disposition: HOME - Home Medications Comprehensive Discharge Medication List: Ambulatory Orders Aspirin [ASA -] 81 mg PO DAILY #0 tab.chew 02/26/13 Levothyroxine [Synthroid -] 50 mcg PO DAILY 12/15/16 Atorvastatin Ca [Lipitor] 20 mg PO HS 09/28/19 Amlodipine Besylate [Norvasc -] 5 mg PO DAILY 30 Days #30 tablet 09/30/19 This patient is new to me today: Yes Date on this admission: 09/30/19 Emergency Visit: No Critical Care patient: No - Discharge Referral Referred to [facility] Med P.C[facility] No ATTENDING PHYSICIAN STATEMENT I saw and evaluated the patient. I reviewed the resident's note and discussed the case with the resident. I agree with the resident's findings and plan as documented. SUBJECTIVE: OBJECTIVE: ASSESSMENT AND PLAN:
[2019-09-30 17:44] VITALS: BP 136/61; PULSE 65; TEMP 97.4
== END 2019-09-30 18:13 | disposition home or self-care (01) ==
LOC: JER 11:41 → JERBED 15:06 → J4W 16:40
PROVIDERS: ADMIT Internal Medicine; ATTEND Internal Medicine
PROC: 3E033GC Introduction of Other Therapeutic Substance into Peripheral Vein, Percutaneous Approach (ICD-10-PCS; principal; 2019-09-28)
PROC: 3E013GC Introduction of Other Therapeutic Substance into Subcutaneous Tissue, Percutaneous Approach (ICD-10-PCS; 2019-09-28)
DX: R07.89 Other chest pain (principal); R00.2 Palpitations; I10 Essential (primary) hypertension; E78.5 Hyperlipidemia, unspecified; E03.9 Hypothyroidism, unspecified; R73.03 Prediabetes; Z79.82 Long term (current) use of aspirin
CPT/HCPCS: 36415; 71046-TC-FY; 78452-TC; 80048; 80053; 82550; 82553; 83735; 83880; 84100; 84443; 84484; 85025; 85027; 85610; 85730; 86140; 93005; 93010; 93017; 99285-25; A9502; G0378; J1644; J2785

== ENCOUNTER 2020-06-05 17:01 | Emergency (ER) | payer OTHER ==
[2020-06-05 17:27] VITALS: BP 157/70; PULSE 74; TEMP 97.5; BMI 32.3
[2020-06-05] MEDS ORDERED: METOCLOPRAMIDE HCL INJECTION 10 MG/2 ML VIAL IVPB ONE (18:13)
[2020-06-05] MEDS ORDERED: LACTATED RINGERS SOLUTION 1000 ML INFUS.BAG IV ONE (18:14)
[2020-06-05] MEDS ORDERED: ACETAMINOPHEN 1000 MG/100 ML VIAL (NON FORMULARY) IVPB ONE (18:43)
[2020-06-05] MEDS ORDERED: METOCLOPRAMIDE HCL INJECTION 10 MG/2 ML VIAL ONE (19:26)
[2020-06-05] MEDS ORDERED: ACETAMINOPHEN INJECTION 100 ML IVPB ONE (19:27)
[2020-06-05 19:57] LABS: BASO % 1.2 % (0-2.0); EOS % 2.6 % (0-4.5); HEMATOCRIT 37.3 % (32.4-45.2); HEMOGLOBIN 12.4 GM/dL (10.7-15.3); LYMPH % 40.1 % (8-40); MCH 30.9 pg (25.7-33.7); MCHC 33.3 g/dl (32.0-36.0); MEAN CELL VOLUME 92.7 fl (80-96); MEAN PLT VOLUME 8.7 fl (7.5-11.1); MONO % 7.8 % (3.8-10.2); NEUT % 48.3 % (42.8-82.8); PLATELET COUNT 297 K/MM3 (134-434); RBC 4.02 M/mm3 (3.60-5.2); RDW 14.2 % (11.6-15.6); WHITE BLOOD COUNT 9.5 K/mm3 (4.0-10.0)
[2020-06-05 20:19] LABS: CHLORIDE 108 mmol/L (98-107); POTASSIUM 4.1 mmol/L (3.5-5.1); SODIUM 141 mmol/L (136-145)
[2020-06-05 20:23] LABS: CALCIUM 8.9 mg/dL (8.5-10.1)
[2020-06-05 20:24] LABS: ALBUMIN 3.9 g/dl (3.4-5.0); ANION GAP 5 MMOL/L (8-16); BLOOD UREA NITROGEN 13.6 mg/dL (7-18); CO2 28 mmol/L (21-32); GLUCOSE,RANDOM 102 mg/dL (74-106)
[2020-06-05 20:27] LABS: CREATININE 0.8 mg/dL (0.55-1.3); SGOT/AST 16 U/L (15-37); SGPT/ALT 23 U/L (13-61)
[2020-06-05 20:29] LABS: BILIRUBIN,TOTAL 0.3 mg/dL (0.2-1); TOT PROT 7.7 g/dl (6.4-8.2)
[2020-06-05 20:30] LABS: ALK PHOS 108 U/L (45-117)
[2020-06-05 20:43] LABS: ERYTHROCYTE SEDIMENTATION RATE 19 mm/hr (0-30)
[2020-06-05 21:40] LABS: URINE APPEARANCE CLEAR; URINE BILIRUBIN NEGATIVE (NEGATIVE); URINE COLOR YELLOW; URINE GLUCOSE (UA) NEGATIVE (NEGATIVE); URINE KETONE NEGATIVE (NEGATIVE); URINE LEUK ESTERASE NEGATIVE (NEGATIVE); URINE NITRITE NEGATIVE (NEGATIVE); URINE PROTEIN NEGATIVE (NEGATIVE); URINE UROBILINOGEN 0.2 mg/dL (0.2-1.0)
== END 2020-06-05 22:02 | disposition home or self-care (01) ==
LOC: JER 17:01
PROC: 3E033NZ Introduction of Analgesics, Hypnotics, Sedatives into Peripheral Vein, Percutaneous Approach (ICD-10-PCS; principal; 2020-06-05)
PROC: 3E033GC Introduction of Other Therapeutic Substance into Peripheral Vein, Percutaneous Approach (ICD-10-PCS; 2020-06-05)
DX: G44.209 Tension-type headache, unspecified, not intractable (principal)
CPT/HCPCS: 36415; 70450-TC; 71046-TC-FY; 80053; 81003; 82550; 82553; 84484; 85025; 85651; 86140; 87086; 93005; 93010; 99285-25; J0131

== ENCOUNTER 2020-07-19 23:22 | Emergency (ER) | payer OTHER ==
[2020-07-20 00:13] VITALS: BP 152/70; PULSE 75; TEMP 98.6; BMI 31.2
[2020-07-20] MEDS ORDERED: KETOROLAC TROMETHAMINE 15 MG/ML VIAL IM ONE (00:20)
[2020-07-20] MEDS ORDERED: KETOROLAC TROMETHAMINE 15 MG/ML VIAL ONE (00:30)
== END 2020-07-20 01:15 | disposition home or self-care (01) ==
LOC: JER 23:22
PROC: 3E033NZ Introduction of Analgesics, Hypnotics, Sedatives into Peripheral Vein, Percutaneous Approach (ICD-10-PCS; principal; 2020-07-20)
DX: M50.90 Cervical disc disorder, unspecified, unspecified cervical region (principal)
CPT/HCPCS: 99284-25

== ENCOUNTER 2021-03-11 13:53 | Emergency (ER) | payer OTHER ==
[2021-03-11 14:02] VITALS: BP 152/79; PULSE 72; TEMP 98.1; BMI 32.1
[2021-03-11] MEDS ORDERED: NAPROXEN 250 MG TABLET PO ONE (14:47)
[2021-03-11] MEDS ORDERED: LIDOCAINE 5% TOPICAL PATCH TP ONE (14:47)
[2021-03-11] MEDS ORDERED: LIDOCAINE 5% TOPICAL PATCH ONE (15:25)
[2021-03-11] MEDS ORDERED: NAPROXEN 500 MG TABLET ONE (15:27)
[2021-03-11 15:59] LABS: BASO % 0.5 % (0-2.0); EOS % 3.2 % (0-4.5); HEMATOCRIT 35.6 % (32.4-45.2); HEMOGLOBIN 12.1 GM/dL (10.7-15.3); LYMPH % 41.6 % (8-40); MCH 30.7 pg (25.7-33.7); MCHC 33.9 g/dl (32.0-36.0); MEAN CELL VOLUME 90.7 fl (80-96); MEAN PLT VOLUME 7.9 fl (7.5-11.1); MONO % 8.7 % (3.8-10.2); PLATELET COUNT 298 10^3/uL (134-434); RBC 3.92 M/mm3 (3.60-5.2); RDW 14.7 % (11.6-15.6)
[2021-03-11 16:20] LABS: CHLORIDE 107 mmol/L (98-107); SODIUM 140 mmol/L (136-145)
[2021-03-11 16:22] LABS: CALCIUM 8.9 mg/dL (8.5-10.1)
[2021-03-11 16:23] LABS: ALBUMIN 3.9 g/dl (3.4-5.0); ANION GAP 6 MMOL/L (8-16); BLOOD UREA NITROGEN 15.9 mg/dL (7-18); CO2 26 mmol/L (21-32); GLUCOSE,RANDOM 85 mg/dL (74-106)
[2021-03-11 16:26] LABS: CREATININE 0.7 mg/dL (0.55-1.3); SGOT/AST 17 U/L (15-37); SGPT/ALT 31 U/L (13-61)
[2021-03-11 16:27] LABS: BILIRUBIN,TOTAL 0.3 mg/dL (0.2-1); TOT PROT 7.9 g/dl (6.4-8.2)
[2021-03-11 16:29] LABS: ALK PHOS 113 U/L (45-117)
== END 2021-03-11 17:27 | disposition home or self-care (01) ==
LOC: JER 13:53
DX: M54.12 Radiculopathy, cervical region (principal)
CPT/HCPCS: 36415; 72040-TC; 80053; 82550; 82553; 84484; 85025; 93005; 93010; 99285-25

== ENCOUNTER 2021-08-10 20:33 | Emergency (ER) | payer MEDICARE, OTHER ==
[2021-08-10 20:41] VITALS: BMI 36.6
[2021-08-10 22:51] LABS: BASO % 0.5 % (0-2.0); EOS % 3.7 % (0-4.5); HEMATOCRIT 34.4 % (32.4-45.2); HEMOGLOBIN 11.5 GM/dL (10.7-15.3); LYMPH % 45.2 % (8-40); MCH 30.4 pg (25.7-33.7); MCHC 33.4 g/dl (32.0-36.0); MEAN CELL VOLUME 91.2 fl (80-96); MEAN PLT VOLUME 8.1 fl (7.5-11.1); MONO % 8.1 % (3.8-10.2); NEUT % 42.5 % (42.8-82.8); PLATELET COUNT 285 10^3/uL (134-434); RBC 3.77 M/mm3 (3.60-5.2); RDW 14.6 % (11.6-15.6); WHITE BLOOD COUNT 9.1 K/mm3 (4.0-10.0)
[2021-08-10 23:13] LABS: CHLORIDE 108 mmol/L (98-107); SODIUM 143 mmol/L (136-145)
[2021-08-10 23:14] LABS: CALCIUM 9.5 mg/dL (8.5-10.1)
[2021-08-10 23:15] LABS: ALBUMIN 3.8 g/dl (3.4-5.0); ANION GAP 6 MMOL/L (8-16); BLOOD UREA NITROGEN 23.8 mg/dL (7-18); CO2 28 mmol/L (21-32); GLUCOSE,RANDOM 105 mg/dL (74-106)
[2021-08-10 23:19] LABS: CREATININE 0.8 mg/dL (0.55-1.3); SGOT/AST 20 U/L (15-37); SGPT/ALT 37 U/L (13-61)
[2021-08-10 23:20] LABS: BILIRUBIN,TOTAL 0.2 mg/dL (0.2-1); TOT PROT 7.8 g/dl (6.4-8.2)
[2021-08-10 23:22] LABS: ALK PHOS 113 U/L (45-117)
[2021-08-11 02:10] VITALS: BP 139/71; PULSE 85; TEMP 98.3
== END 2021-08-11 02:10 | disposition home or self-care (01) ==
LOC: JER 20:33
DX: R06.02 Shortness of breath (principal)
CPT/HCPCS: 36415; 71046-TC-FY; 71275-TC; 80053; 82550; 82553; 83880; 84484; 85025; 85379; 93005; 93010; 99285-25; C9803; U0003; U0005

== ENCOUNTER 2022-08-09 19:34 | Emergency (ER) | payer OTHER ==
[2022-08-09 19:51] VITALS: BP 145/75; PULSE 53; RESP 16; TEMP 98.4; BMI 29.5
[2022-08-09] MEDS ORDERED: METHOCARBAMOL 500 MG TABLET PO ONE (23:20)
[2022-08-10] MEDS ORDERED: METHOCARBAMOL 500 MG TABLET ONE (00:04)
== END 2022-08-10 00:08 | disposition home or self-care (01) ==
LOC: JER 19:34
DX: M62.838 Other muscle spasm (principal)
CPT/HCPCS: 99283-25

== ENCOUNTER 2022-11-03 03:06 | Observation (INO) | payer OTHER ==
[2022-11-03 03:15] VITALS: BMI 29.3
[2022-11-03 04:34] LABS: BASO % 0.6 % (0-2.0); EOS % 3.1 % (0-4.5); HEMOGLOBIN 11.2 GM/dL (10.7-15.3); LYMPH % 46.9 % (8-40); MCHC 33.9 g/dl (32.0-36.0); MEAN CELL VOLUME 91.4 fl (80-96); MEAN PLT VOLUME 8.9 fl (7.5-11.1); MONO % 8.7 % (3.8-10.2); NEUT % 40.7 % (42.8-82.8); PLATELET COUNT 248 10^3/uL (134-434); RBC 3.61 M/mm3 (3.60-5.2); RDW 14.8 % (11.6-15.6)
[2022-11-03 05:15] LABS: CHLORIDE 106 mmol/L (98-107); SODIUM 135 mmol/L (136-145)
[2022-11-03 05:17] LABS: ALBUMIN 3.6 g/dl (3.4-5.0); BLOOD UREA NITROGEN 21.4 mg/dL (7-18); CALCIUM 9.3 mg/dL (8.5-10.1); CO2 25 mmol/L (21-32); GLUCOSE,RANDOM 94 mg/dL (74-106)
[2022-11-03 05:20] LABS: CREATININE 0.8 mg/dL (0.55-1.3); SGOT/AST 72 U/L (15-37)
[2022-11-03 05:22] LABS: BILIRUBIN,TOTAL 0.3 mg/dL (0.2-1); TOT PROT 7.9 g/dl (6.4-8.2)
[2022-11-03 05:23] LABS: ALK PHOS 94 U/L (45-117)
[2022-11-03 05:27] LABS: ANION GAP 3 MMOL/L (8-16); SGPT/ALT 32 U/L (13-61)
[2022-11-03] MEDS ORDERED: ACETAMINOPHEN 1000 MG/100 ML BAG IVPB ONE (07:08)
[2022-11-03] MEDS ORDERED: ACETAMINOPHEN INJECTION 100 ML IVPB ONE (07:56)
[2022-11-03] MEDS ORDERED: ASPIRIN 81 MG CHEWABLE TABLETS ONE (07:56)
[2022-11-03] MEDS ORDERED: ASPIRIN COATED 81 MG TABLET.EC PO ONE (08:02)
[2022-11-03] MEDS ORDERED: ASPIRIN 81 MG CHEWABLE TABLETS PO ONE (08:02)
[2022-11-03] MEDS ORDERED: SODIUM CHLORIDE 1,000 ML IV SCH (09:15)
[2022-11-03 09:28] LABS: CALCIUM 9.6 mg/dL (8.5-10.1)
[2022-11-03 09:32] LABS: CREATININE 0.7 mg/dL (0.55-1.3)
[2022-11-03] MEDS ORDERED: ASPIRIN COATED 81 MG TABLET.EC PO SCH (10:00)
[2022-11-03] MEDS ORDERED: metoPROLOL SUCCINATE 25 MG TAB.SR.24H (FP) PO SCH (10:00)
[2022-11-03 10:34] VITALS: RESP 18
[2022-11-03] MEDS: LEVOTHYROXINE NA 50 MCG TABLET (FP) PO SCH (11:22)
[2022-11-03] MEDS: LOSARTAN POTASSIUM 50 MG TABLET PO SCH (11:22)
[2022-11-03] MEDS: ASPIRIN 81 MG CHEWABLE TABLETS PO SCH ×2 (11:26→12:54)
[2022-11-03] MEDS ORDERED: ATORVASTATIN CA 20 MG TABLET (FP) PO SCH (22:00)
[2022-11-04 07:37] LABS: HEMATOCRIT 33.2 % (32.4-45.2); HEMOGLOBIN 11.2 GM/dL (10.7-15.3); MCH 30.8 pg (25.7-33.7); MCHC 33.7 g/dl (32.0-36.0); MEAN CELL VOLUME 91.1 fl (80-96); MEAN PLT VOLUME 8.7 fl (7.5-11.1); PLATELET COUNT 236 10^3/uL (134-434); RBC 3.64 M/mm3 (3.60-5.2); RDW 14.6 % (11.6-15.6); WHITE BLOOD COUNT 8.1 K/mm3 (4.0-10.0)
[2022-11-04 07:43] LABS: INR 1.06 (0.83-1.09); PROTHROMBIN TIME (PATIENT) 12.3 SEC (9.7-13.0)
[2022-11-04 08:06] LABS: ALBUMIN 3.2 g/dl (3.4-5.0); BLOOD UREA NITROGEN 20.1 mg/dL (7-18); PHOSPHOROUS 3.6 mg/dL (2.5-4.9)
[2022-11-04 08:08] LABS: BILIRUBIN,TOTAL 0.4 mg/dL (0.2-1); TOT PROT 6.7 g/dl (6.4-8.2)
[2022-11-04 08:09] LABS: CALCIUM 8.7 mg/dL (8.5-10.1); CREATININE 0.7 mg/dL (0.55-1.3); MAGNESIUM 2.3 mg/dL (1.8-2.4)
[2022-11-04 09:17] VITALS: BP 129/74; PULSE 50; TEMP 98
[2022-11-04] MEDS: LOSARTAN POTASSIUM 50 MG TABLET PO SCH (09:32)
[2022-11-04] MEDS: LEVOTHYROXINE NA 50 MCG TABLET (FP) PO SCH (09:33)
[2022-11-04] MEDS: ASPIRIN 81 MG CHEWABLE TABLETS PO SCH (09:33)
== END 2022-11-04 14:21 | disposition home or self-care (01) ==
LOC: JER 03:06 → JERBED 05:05 → J4W 10:48
PROVIDERS: ADMIT Internal Medicine; ATTEND Internal Medicine
PROC: 3E0337Z Introduction of Electrolytic and Water Balance Substance into Peripheral Vein, Percutaneous Approach (ICD-10-PCS; principal; 2022-11-03)
DX: I10 Essential (primary) hypertension (principal); E78.5 Hyperlipidemia, unspecified; G89.29 Other chronic pain; E03.9 Hypothyroidism, unspecified
CPT/HCPCS: 0241U-QW; 36415; 71045-TC-FY; 80048; 80053; 83735; 84100; 84443; 84484; 85025; 85027; 85610; 93005; 93010; 96360; 99285-25; G0378